=== PATIENT | female | born 1990 | race African-American/Black ===

== ENCOUNTER 2017-01-24 12:37 | Emergency (ER) | payer MEDICAID ==
[2017-01-24 13:28] LABS: URINE SOURCE CLEAN CATCH
[2017-01-24 13:34] LABS: URINE APPEARANCE CLEAR; URINE BILIRUBIN NEG (NEG); URINE BLOOD NEG (NEG); URINE COLOR YELLOW; URINE GLUCOSE NEG (NEG); URINE KETONE NEG (NEG); URINE LEUKOCYTE ESTERASE NEG (NEG); URINE NITRATE NEG (NEG); URINE PH 7.5 (5-8); URINE PROTEIN NEG (NEG); URINE SPECIFIC GRAVITY 1.016 (1.003-1.035)
[2017-01-24 13:42] LABS: CULTURE INDICATED? NO
[2017-01-28 10:10] LABS: CHLAMYDIA TRACH Not Detected (Not Detected); N GONOR Not Detected (Not Detected)
== END 2017-01-24 14:14 | disposition home or self-care (01) ==
LOC: CED 12:37 → CFTX 12:37
PROVIDERS: Physician Assistant Medical
DX: R10.2 Pelvic and perineal pain (principal); G89.29 Other chronic pain
CPT/HCPCS: 81003; 84703; 87491; 87591; 87808; 87905; 99284